=== PATIENT | male | born 1945 | race Caucasian/White ===

== ENCOUNTER 2023-08-21 13:58 | Inpatient (IN) | payer MEDICARE, OTHER ==
[~2023-08-21] VITALS: Ht 172.7 cm; Wt 86.2 kg
[2023-08-21] MEDS ORDERED: LACT10SO58 PO (15:42)
[2023-08-21] MEDS ORDERED: ACET325T53 PO (15:42)
[2023-08-21] MEDS ORDERED: METO25TA6 PO (15:42)
[2023-08-21] MEDS ORDERED: HYOS-15 PO (15:42)
[2023-08-21] MEDS ORDERED: CHOLECALCIFEROL PO (15:42)
[2023-08-21] MEDS ORDERED: ACET10DR15 EACH EAR (15:42)
[2023-08-21] MEDS ORDERED: ATOR20TA PO (15:42)
[2023-08-21] MEDS ORDERED: VITAMIN B12 SQ (15:42)
[2023-08-21] MEDS ORDERED: LOSA50TA3 PO (15:42)
[2023-08-21] MEDS ORDERED: MELA5TAB21 PO (15:42)
[2023-08-21] MEDS ORDERED: BISA-79 PO (15:42)
[2023-08-21] MEDS ORDERED: METF-494 PO (15:42)
[2023-08-21] MEDS ORDERED: POLY250017 PO (15:42)
[2023-08-21] MEDS ORDERED: QUET50TA PO (15:42)
[2023-08-21] MEDS ORDERED: CELE200C PO (15:42)
[2023-08-21] MEDS ORDERED: LEVO500T90 PO (15:42)
[2023-08-21] MEDS ORDERED: QUETIAPINE FUMARATE 100 MG TABLET ONE (16:21)
[2023-08-21] MEDS ORDERED: QUETIAPINE FUMARATE 25 MG TABLET PO ONE (16:30)
[2023-08-21] MEDS ORDERED: ACETAMINOPHEN 325 MG TABLET PO PRN (20:45)
[2023-08-21] MEDS ORDERED: CLONAZEPAM 0.5 MG TABLET PO SCH (20:45)
[2023-08-21] MEDS ORDERED: BLOOD SUGAR DIAGNOSTIC 1 EACH STRIP VI ONE (20:45)
[2023-08-21] MEDS ORDERED: MAGNESIUM HYDROXIDE 30 ML LIQUID UDC PO PRN (20:45)
[2023-08-21] MEDS ORDERED: MAG HYDROX/AL HYDROX/SIMETH 30 ML LIQUID UDC PO PRN (20:45)
[2023-08-21 21:13] VITALS: BP 137/59; TEMP 98; O2SAT 94
[2023-08-22 07:46] VITALS: BP 147/77; TEMP 98.1; O2SAT 94
[2023-08-22] MEDS: CLONAZEPAM 0.5 MG TABLET PO PRN (13:10)
[2023-08-22 16:12] VITALS: BP 149/76; TEMP 98.2; O2SAT 95
[2023-08-22] MEDS: QUETIAPINE FUMARATE 25 MG TABLET PO SCH (16:29)
[2023-08-22] MEDS ORDERED: DEXTROSE 50% 50 ML DISP.SYRIN IV PRN (19:15)
[2023-08-22 19:55] VITALS: BP 146/73; TEMP 98; O2SAT 94
[2023-08-22] MEDS: MELATONIN 3 MG TABLET PO SCH (20:59)
[2023-08-22] MEDS ORDERED: CLINDAMYCIN HCL 300 MG CAPSULE ONE (21:49)
[2023-08-22] MEDS ORDERED: ERYTHROMYCIN 0.5% OPHT OINT 3.5 GM TUBE ONE (21:49)
[2023-08-22] MEDS: BLOOD SUGAR DIAGNOSTIC 1 EACH STRIP VI SCH (21:52)
[2023-08-22] MEDS: CLINDAMYCIN HCL 300 MG CAPSULE PO SCH (21:54)
[2023-08-22] MEDS: ERYTHROMYCIN 0.5% OPHT OINT 3.5 GM TUBE LEFTEYE SCH (21:54)
[2023-08-22] MEDS: INSULIN REGULAR, HUMAN 300 UNIT/3 ML VIAL SQ PRN (22:00)
[2023-08-22] MEDS: TEMAZEPAM 7.5 MG CAPSULE PO PRN (22:45)
[2023-08-23] MEDS: BLOOD SUGAR DIAGNOSTIC 1 EACH STRIP VI SCH ×4 (06:48→20:31)
[2023-08-23 07:55] VITALS: BP 155/86; TEMP 98.2; O2SAT 97
[2023-08-23] MEDS: INSULIN REGULAR, HUMAN 300 UNIT/3 ML VIAL SQ PRN ×2 (08:26→21:30)
[2023-08-23] MEDS: ERYTHROMYCIN 0.5% OPHT OINT 3.5 GM TUBE LEFTEYE SCH ×2 (08:32→21:23)
[2023-08-23] MEDS: POLYVINYL ALCOHOL OPHT DROPS 15 ML BOTTLE EACHEYE SCH ×2 (08:33→17:14)
[2023-08-23] MEDS: QUETIAPINE FUMARATE 25 MG TABLET PO SCH ×3 (08:34→17:13)
[2023-08-23] MEDS: CLINDAMYCIN HCL 300 MG CAPSULE PO SCH ×4 (08:35→21:23)
[2023-08-23 10:21] LABS: BASOPHILS # (AUTO) 0.1 K/UL (0.0-0.2); BASOPHILS % (AUTO) 1.4 % (0.0-2.0); DIFFERENTIAL COMMENT 0; EOSINOPHILS # (AUTO) 0.2 K/uL (0.0-0.7); EOSINOPHILS % (AUTO) 4.1 % (0.0-7.0); HEMATOCRIT 42.8 % (36.7-47.1); HEMOGLOBIN 14.2 g/dL (12.5-16.3); LYMPHOCYTES # (AUTO) 1.7 K/uL (0.8-4.8); LYMPHOCYTES % (AUTO) 30.8 % (20.5-51.5); MEAN CORPUSCULAR HEMOGLOBIN 30.1 uug (23.8-33.4); MEAN CORPUSCULAR HGB CONC 33 g/dL (32.5-36.3); MEAN CORPUSCULAR VOLUME 90.7 fL (73.0-96.2); MONOCYTES # (AUTO) 0.4 K/uL (0.1-1.30); MONOCYTES % (AUTO) 7.7 % (0.0-11.0); NEUTROPHILS # (AUTO) 3.1 K/uL (1.8-8.9); PLATELET COUNT (AUTO) 94 K/uL (152-348); RED BLOOD CELL COUNT(AUTO) 4.72 MIL/uL (4.06-5.63); RED CELL DISTRIBUTION WIDTH 13.5 % (12.1-16.2); WHITE BLOOD COUNT (AUTO) 5.5 K/uL (3.6-10.2)
[2023-08-23 10:27] LABS: ALANINE AMINOTRANSFERASE 26 U/L (16-63); ALBUMIN 3.5 g/dL (3.4-5.0); ALKALINE PHOSPHATASE 78 U/L (50-136); ASPARTATE AMINOTRANSFERASE 23 U/L (15-37); BILIRUBIN,TOTAL 0.7 mg/dL (0.2-1.0); CALCIUM 8.7 mg/dL (8.5-10.1); CARBON DIOXIDE 27 mmol/L (21-32); CHLORIDE 102 mmol/L (98-107); GLUCOSE 224 mg/dL (74-106); POTASSIUM 3.9 mmol/L (3.5-5.1); SODIUM SERUM 136 mmol/L (136-145); TOTAL PROTEIN, SERUM 7.7 g/dL (6.4-8.2); UREA NITROGEN, BLOOD 22 mg/dL (7-18)
[2023-08-23 16:22] VITALS: BP 155/87; TEMP 98.1; O2SAT 98
[2023-08-23 20:00] VITALS: BP 156/88; TEMP 98; O2SAT 94
[2023-08-23] MEDS: MELATONIN 3 MG TABLET PO SCH (21:25)
[2023-08-24] MEDS: BLOOD SUGAR DIAGNOSTIC 1 EACH STRIP VI SCH ×4 (07:06→20:50)
[2023-08-24 08:14] VITALS: BP 119/86; TEMP 98.1; O2SAT 98
[2023-08-24] MEDS: QUETIAPINE FUMARATE 25 MG TABLET PO SCH ×3 (09:58→17:42)
[2023-08-24] MEDS: CLINDAMYCIN HCL 300 MG CAPSULE PO SCH ×4 (09:58→20:33)
[2023-08-24] MEDS: ERYTHROMYCIN 0.5% OPHT OINT 3.5 GM TUBE LEFTEYE SCH ×2 (09:59→20:33)
[2023-08-24] MEDS: POLYVINYL ALCOHOL OPHT DROPS 15 ML BOTTLE EACHEYE SCH ×2 (09:59→17:42)
[2023-08-24 16:24] VITALS: BP 154/96; TEMP 98; O2SAT 98
[2023-08-24] MEDS: INSULIN REGULAR, HUMAN 300 UNIT/3 ML VIAL SQ PRN ×2 (17:26→20:43)
[2023-08-24 19:33] VITALS: BP 125/77; TEMP 98; O2SAT 98
[2023-08-24] MEDS: MELATONIN 3 MG TABLET PO SCH (20:33)
[2023-08-24] MEDS: TEMAZEPAM 7.5 MG CAPSULE PO PRN (22:19)
[2023-08-25] MEDS: BLOOD SUGAR DIAGNOSTIC 1 EACH STRIP VI SCH ×4 (07:30→21:07)
[2023-08-25 08:00] VITALS: BP 157/81; TEMP 98.2; O2SAT 96
[2023-08-25] MEDS: CLINDAMYCIN HCL 300 MG CAPSULE PO SCH ×4 (08:22→20:09)
[2023-08-25] MEDS: POLYVINYL ALCOHOL OPHT DROPS 15 ML BOTTLE EACHEYE SCH ×2 (08:22→17:33)
[2023-08-25] MEDS: ERYTHROMYCIN 0.5% OPHT OINT 3.5 GM TUBE LEFTEYE SCH ×2 (08:22→20:10)
[2023-08-25] MEDS: QUETIAPINE FUMARATE 25 MG TABLET PO SCH ×3 (08:22→17:33)
[2023-08-25] MEDS: CLONAZEPAM 0.5 MG TABLET PO PRN (09:09)
[2023-08-25] MEDS: INSULIN REGULAR, HUMAN 300 UNIT/3 ML VIAL SQ PRN ×2 (14:13→21:08)
[2023-08-25 16:00] VITALS: BP 135/85; TEMP 98; O2SAT 94
[2023-08-25 20:00] VITALS: BP 148/85; TEMP 98; O2SAT 96
[2023-08-25] MEDS: MELATONIN 3 MG TABLET PO SCH (20:10)
[2023-08-26] MEDS: BLOOD SUGAR DIAGNOSTIC 1 EACH STRIP VI SCH ×4 (06:29→21:36)
[2023-08-26 08:55] VITALS: BP 136/78; TEMP 98.2; O2SAT 98
[2023-08-26] MEDS: CLINDAMYCIN HCL 300 MG CAPSULE PO SCH ×4 (09:02→21:28)
[2023-08-26] MEDS: QUETIAPINE FUMARATE 25 MG TABLET PO SCH ×3 (09:02→17:00)
[2023-08-26] MEDS: POLYVINYL ALCOHOL OPHT DROPS 15 ML BOTTLE EACHEYE SCH ×2 (09:03→17:01)
[2023-08-26] MEDS: ERYTHROMYCIN 0.5% OPHT OINT 3.5 GM TUBE LEFTEYE SCH ×2 (09:03→21:28)
[2023-08-26] MEDS: CLONAZEPAM 0.5 MG TABLET PO PRN (12:30)
[2023-08-26 15:40] VITALS: BP 128/60; TEMP 98; O2SAT 98
[2023-08-26 20:00] VITALS: BP 128/94; TEMP 98.2; O2SAT 93
[2023-08-26] MEDS: MELATONIN 3 MG TABLET PO SCH (21:28)
[2023-08-26] MEDS: INSULIN REGULAR, HUMAN 300 UNIT/3 ML VIAL SQ PRN (22:17)
[2023-08-27] MEDS: BLOOD SUGAR DIAGNOSTIC 1 EACH STRIP VI SCH ×2 (07:14→11:55)
[2023-08-27 08:01] VITALS: BP 163/97; TEMP 98.4; O2SAT 96
[2023-08-27] MEDS ORDERED: GLUCERNA SHAKE 237 ML CAN PO SCH (09:00)
[2023-08-27] MEDS: CLINDAMYCIN HCL 300 MG CAPSULE PO SCH ×2 (09:10→12:08)
[2023-08-27] MEDS: ERYTHROMYCIN 0.5% OPHT OINT 3.5 GM TUBE LEFTEYE SCH (09:10)
[2023-08-27] MEDS: QUETIAPINE FUMARATE 25 MG TABLET PO SCH ×2 (09:10→12:08)
[2023-08-27] MEDS: POLYVINYL ALCOHOL OPHT DROPS 15 ML BOTTLE EACHEYE SCH (09:12)
[2023-08-27 11:00] VITALS: BP 145/68; TEMP 98; O2SAT 96
[2023-08-27] MEDS: CLONAZEPAM 0.5 MG TABLET PO PRN (12:11)
[2023-08-27] MEDS: INSULIN REGULAR, HUMAN 300 UNIT/3 ML VIAL SQ PRN (12:14)
== END 2023-08-27 13:00 | DRG 885 ==
LOC: ER 13:58 → GPS 18:26
PROVIDERS: ADMIT Psychiatry & Neurology Psychiatry; ATTEND Nurse Practitioner Acute Care
DX: F29 Unspecified psychosis not due to a substance or known physiological condition (principal); E11.65 Type 2 diabetes mellitus with hyperglycemia; F02.811 Dementia in other diseases classified elsewhere, unspecified severity, with agitation; G30.9 Alzheimer's disease, unspecified; E66.9 Obesity, unspecified; Z68.28 Body mass index [BMI] 28.0-28.9, adult; H10.502 Unspecified blepharoconjunctivitis, left eye; R26.81 Unsteadiness on feet; R53.1 Weakness; E78.5 Hyperlipidemia, unspecified; I10 Essential (primary) hypertension; R53.81 Other malaise; I25.2 Old myocardial infarction; M47.896 Other spondylosis, lumbar region; Z79.899 Other long term (current) drug therapy; Z79.84 Long term (current) use of oral hypoglycemic drugs
CPT/HCPCS: 36415; 85025; J1815